=== PATIENT | female | born 1970 | race Caucasian/White ===

== ENCOUNTER 2024-03-27 19:34 | Emergency (ER) | payer OTHER ==
[~2024-03-27] VITALS: Ht 172.7 cm; Wt 59.0 kg
[~2024-03-27 19:34] MED LIST: ONDA4ODT MM
[2024-03-27 19:58] LABS: BASOPHILS ABSOLUTE AUTO 0.04 K/mm3 (0.00-0.23); BASOPHILS PERCENT AUTO 0 % (0-2); EOSINOPHILS ABSOLUTE AUTO 0.33 K/mm3 (0.00-0.68); EOSINOPHILS PERCENT AUTO 4 % (0-6); Hematocrit 38.1 % (33.0-51.0); Hemoglobin 13.1 g/dL (11.5-16.0); IMMATURE GRAN ABSOLUTE AUTO 0.02 K/mm3 (0.00-0.10); IMMATURE GRAN PERCENT AUTO 0 % (0-1); LYMPHOCYTES ABSOLUTE AUTO 2.49 K/mm3 (0.84-5.20); LYMPHOCYTES PERCENT AUTO 27 % (21-46); MONOCYTES ABSOLUTE AUTO 0.66 K/mm3 (0.16-1.47); MONOCYTES PERCENT AUTO 7 % (4-13); Mean Corpuscular HGB Conc 34.4 g/dL (31.5-36.5); Mean Corpuscular Volume 90 fL (80-100); NEUTROPHILS ABSOLUTE AUTO 5.87 K/mm3 (1.96-9.15); NEUTROPHILS PERCENT AUTO 62 % (41-73); Platelet Count 239 K/mm3 (150-400); RDW Coefficient Variation 12.8 % (11.7-14.2); RDW Standard Deviation 41.8 fL (35.1-46.3); Red Blood Cell Count 4.22 M/mm3 (3.80-5.20); White Blood Cell Count 9.41 K/mm3 (4.00-11.30)
[2024-03-27 20:24] LABS: Albumin, Blood 3.8 g/dL (3.4-5.0); Albumin/Globulin Ratio 1.2 (0.8-1.8); Bilirubin, Total 0.4 mg/dL (0.1-1.0); Bun/Creatinine Ratio 40.7 (12.0-20.0); Calcium, Blood 8.7 mg/dL (8.5-10.1); Creatinine, Blood 0.62 mg/dL (0.40-1.00); Globulin, Blood 3.3 g/dL (2.2-4.0); Potassium, Blood 3.3 mmol/L (3.5-5.5); Total Protein, Blood 7.1 g/dL (6.4-8.2)
[2024-03-27 20:33] LABS: Influenza A, PCR NEGATIVE (NEGATIVE); Influenza B, PCR NEGATIVE (NEGATIVE); Resp Syncytial Virus, PCR NEGATIVE (NEGATIVE); SARS-Cov-2 (COVID-19) PCR, MMC NEGATIVE (NEGATIVE)
[2024-03-27] MEDS ORDERED: Ketorolac Tromethamine 30mg Vial IV ONE (20:50)
[2024-03-27] MEDS ORDERED: NS 1,000 ML IV SCH (20:50)
== END 2024-03-27 22:02 | disposition home or self-care (01) ==
LOC: ER 19:34
PROVIDERS: Student in an Organized Health Care Education/Training Program
DX: R51.9 Headache, unspecified (principal); Z88.0 Allergy status to penicillin; Z88.6 Allergy status to analgesic agent
CPT/HCPCS: 0241U; 80053; 85025; 96361; 96374; 99284-25; J1885; J7030

== ENCOUNTER 2024-04-30 21:32 | Emergency (ER) | payer OTHER ==
[~2024-04-30] VITALS: Ht 175.3 cm; Wt 59.0 kg
[~2024-04-30 21:32] MED LIST changes: +DOXY100 PO; +LACT PO; +METR500 PO; +NICO2 PO; +PARO20 PO; +PRAZ1 PO; +QUET100 PO; +Seroquel Xr50 MG
[2024-04-30] MEDS ORDERED: Morphine Sulfate 4 MG/1 ML Injection IV ONE (23:35)
[2024-04-30] MEDS ORDERED: Ondansetron HCl 2 MG / ML 2ML Vial IV ONE (23:35)
[2024-04-30 23:40] LABS: BASOPHILS ABSOLUTE AUTO 0.03 K/mm3 (0.00-0.23); BASOPHILS PERCENT AUTO 1 % (0-2); EOSINOPHILS ABSOLUTE AUTO 0.07 K/mm3 (0.00-0.68); EOSINOPHILS PERCENT AUTO 1 % (0-6); Hematocrit 38.3 % (33.0-51.0); IMMATURE GRAN ABSOLUTE AUTO 0.02 K/mm3 (0.00-0.10); IMMATURE GRAN PERCENT AUTO 0 % (0-1); LYMPHOCYTES ABSOLUTE AUTO 1.45 K/mm3 (0.84-5.20); LYMPHOCYTES PERCENT AUTO 22 % (21-46); MONOCYTES ABSOLUTE AUTO 0.39 K/mm3 (0.16-1.47); MONOCYTES PERCENT AUTO 6 % (4-13); Mean Corpuscular HGB Conc 33.9 g/dL (31.5-36.5); Mean Corpuscular Volume 91 fL (80-100); NEUTROPHILS ABSOLUTE AUTO 4.58 K/mm3 (1.96-9.15); NEUTROPHILS PERCENT AUTO 70 % (41-73); Platelet Count 235 K/mm3 (150-400); RDW Coefficient Variation 12.7 % (11.7-14.2); RDW Standard Deviation 42.3 fL (35.1-46.3); White Blood Cell Count 6.54 K/mm3 (4.00-11.30)
[2024-04-30 23:55] LABS: Albumin, Blood 3.8 g/dL (3.4-5.0); Albumin/Globulin Ratio 1.2 (0.8-1.8); Bilirubin, Total 0.4 mg/dL (0.1-1.0); Bun/Creatinine Ratio 16.6 (12.0-20.0); Calcium, Blood 8.7 mg/dL (8.5-10.1); Creatinine, Blood 0.54 mg/dL (0.40-1.00); Globulin, Blood 3.2 g/dL (2.2-4.0); Potassium, Blood 3.8 mmol/L (3.5-5.5)
[2024-05-01] MEDS ORDERED: HYDROmorphone HCl/Pf 1MG SYR IV PRN (00:40)
[2024-05-01] MEDS ORDERED: RX Prepack 6 Tabs Oxycodone 5mg UD ONE (01:40)
[2024-05-01] MEDS ORDERED: Diphth,Pertuss(Acell),Tet Vac 0.5 ML VIAL IM ONE (01:45)
== END 2024-05-01 03:00 | disposition home or self-care (01) ==
LOC: ER 21:32
PROVIDERS: Emergency Medicine
DX: S82.852A Displaced trimalleolar fracture of left lower leg, initial encounter for closed fracture (principal); W01.10XA Fall on same level from slipping, tripping and stumbling with subsequent striking against unspecified object, initial encounter; Z88.6 Allergy status to analgesic agent; Z88.8 Allergy status to other drugs, medicaments and biological substances; Z91.018 Allergy to other foods; Z79.899 Other long term (current) drug therapy; F17.200 Nicotine dependence, unspecified, uncomplicated
CPT/HCPCS: 27818; 73610; 80053; 85025; 90471; 90715; 96374-59; 96375-59; 99284-25; A9270; J1170; J2270; J2405

== ENCOUNTER 2024-05-01 09:18 | Inpatient (IN) | payer OTHER ==
[~2024-05-01] VITALS: Ht 167.6 cm; Wt 60.1 kg
[2024-05-01] MEDS ORDERED: Ondansetron 4 MG SoluTab MM ONE (09:30)
[2024-05-01] MEDS ORDERED: HYDROmorphone HCl/Pf 1MG SYR IM ONE ×2 (09:30→11:25)
[2024-05-01] MEDS ORDERED: Ketamine HCl 100 MG / ML 5ML Vial IV ONE (14:10)
[2024-05-01] MEDS ORDERED: HYDROmorphone HCl/Pf 1MG SYR IV ONE (17:00)
[2024-05-01] MEDS ORDERED: Acetaminophen 325 MG TABLET PO PRN (17:40)
[2024-05-01] MEDS ORDERED: Metoclopramide HCl 5MG / ML 2ML Vial IV PRN (17:45)
[2024-05-01] MEDS ORDERED: OxyCODONE HCL 5 MG TAB PO PRN (17:45)
[2024-05-01] MEDS ORDERED: NS 1,000 ML IV SCH (17:45)
[2024-05-01] MEDS ORDERED: FentaNYL Citrate 50 MCG/ML 2 ML Injection IV PRN (17:45)
[2024-05-01] MEDS ORDERED: Ondansetron HCl 2 MG / ML 2ML Vial IV PRN (17:45)
--- NOTE | 2024-05-01 19:45 | NUR ---
NEW ADMIT. PATIENT ADMITTED TO ROOM 302 FROM THE ER. PATIENT ARRIVED TO ROOM VIA GURNEY AND 1 PERSON TRANSFER. PATIENT ARRIVED TO ROOM WITH ONE PERSONAL BELONGINGS BAG AND A SLEEPING BAG. PATIENT ABLE TO SELF TRANSFER WITH STAND PIVOT FROM GURNEY TO BED. THIS RN TO ASSUME CARE OF PATIENT.
[2024-05-01 19:52] VITALS: BP 130/79
[2024-05-02 03:35] VITALS: BP 119/71
--- NOTE | 2024-05-02 04:51 | NUR ---
SHIFT SUMMARY. PATIENT IS A&OX4. PATIENT IS ABLE TO MAKE HER NEEDS KNOWN AND CALLS APPROPRIATELY. PATIENT ADMITED WITH RIGHT ANKLE FX. PATIENT IS ABLE TO STAND PIVOT TO BSC WITH SBA/1 PERSON ASSIST. PATIENT C/O PAIN X2-MEDICATED PER EMAR WITH REPORTED PAIN IMPROVEMENT. PATIENT RESTED OFF AND ON T/O NIGHT WITH RESPIRATIONS EQUAL AND UNLABORED. PATIENT WOULD LIKE TO TAKE A SHOWER TODAY-WILL RELAY TO DAYSHIFT RN. CONSULT WITH ORTHO CALLED IN 05/01/24 BY THIS RN FOR CONSULT ON 05/02/24 IN THE AM. BED IS LOCKED IN THE LOWEST POSITION WITH CALL LIGHT IN REACH. CARE IS ONGOING.
[2024-05-02 05:15] LABS: Hematocrit 34.2 % (33.0-51.0); Hemoglobin 11.4 g/dL (11.5-16.0); Mean Corpuscular HGB 30.6 pg (26.0-34.0); Mean Corpuscular HGB Conc 33.3 g/dL (31.5-36.5); Mean Corpuscular Volume 92 fL (80-100); Mean Platelet Volume 9.8 fL (9.1-12.4); Platelet Count 199 K/mm3 (150-400); RDW Coefficient Variation 12.6 % (11.7-14.2); RDW Standard Deviation 42.4 fL (35.1-46.3); Red Blood Cell Count 3.72 M/mm3 (3.80-5.20); White Blood Cell Count 7.04 K/mm3 (4.00-11.30)
[2024-05-02 05:27] LABS: International Normalized Ratio 1.02; Prothrombin Time Results 10.9 Sec (9.7-11.5)
[2024-05-02 05:47] LABS: Calcium, Blood 8.3 mg/dL (8.5-10.1); Creatinine, Blood 0.47 mg/dL (0.40-1.00); Potassium, Blood 3.7 mmol/L (3.5-5.5)
[2024-05-02 07:17] VITALS: BP 137/76
[2024-05-02] MEDS ORDERED: Enoxaparin 40 MG/0.4 ML SYR SC SCH (09:00)
--- NOTE | 2024-05-02 10:38 | NUR ---
Atempted to set up shower room and wrap leg for patient to shower after request, Georgina came in to chat. after he left just shouting agitated by herself. Entered back i room to finish wrapping leg. Furious stating I stole her phone storage battery charger and wheelchair. I showed her that I only have a trash bag and tape in my hands. Shouting and agitated, both nearby r.n.'s outside door listening. Hopping from subject to subject angry, suspicious, unsatisfiable, agitated. . I just said, Ill come back. Let her continue to shout by herslf, r.n's standby. (I think shes withdrawing) Ill come back to help if shes calmed.
[2024-05-02 15:31] VITALS: BP 133/72
--- NOTE | 2024-05-02 16:45 | NUR ---
PATIENT A&OX4. PATIENT CAN MAKE NEEDS KNOWN. PATIENT STATES PAIN 10/10 TO LEFT ANKLE TREATED PER EMAR. PATIENT STATES SHE HAS PAIN TO HER RIGHT SHOULDER AND LEFT WRIST. ADDITIONAL X-RAYS ORDERED BY DR. IRWIN OF THE LEFT WRIST AND RIGHT SHOULDER. PATIENT TRANSFERS TO BSC INDEPENDENTLY. PATIENT USES CALL LIGHT WHEN IN NEED OF ASSISTANCE WITH TRANSFERS.
--- NOTE | 2024-05-02 16:45 | NUR ---
THIS TELECOMMUNICATION TOWER TECHNICIAN HAS REVIEWED AND AGREES WITH ALL NOTES AND ASSESSMENTS BY AYAAN JARAMILLO.
[2024-05-02 19:34] VITALS: BP 135/75
[2024-05-02] MEDS ORDERED: Docusate Sodium 100 MG Cap PO SCH (21:00)
[2024-05-03 02:57] VITALS: BP 123/75
--- NOTE | 2024-05-03 05:29 | NUR ---
SHIFT SUMMARY 53 YR F ADMITTED ON 05/02/24. FULL CODE. NO ACUTE CHANGES THIS SHIFT. PT STATING LEFT ANKLE PAIN AT 8-9 AND MEDICATED SEVERAL TIMES THIS SHIFT PER EMAR. SHE HAS HAD NO C/O WRIST OR SHOULDER PAIN THIS SHIFT. SHE SLEPT THROUGH MOST OF THE NIGHT AND HAD 1 EPISODE OF INCONTINENCE OF URINE THAT REQUIRED A FULL BED CHANGE. A UA STILL NEEDS TO BE COLLECTED BUT EVERY TIME SHE USES THE URINAL SHE THROWS TOILET TISSUE IN IT DESPITE BEING ASKED NOT TO.
[2024-05-03 06:57] LABS: Source, Urine Clean Catch
[2024-05-03 07:00] LABS: Appearance, Urine Clear (Clear); Bilirubin, Urine Neg (Neg); Blood, Urine 1+ (Neg); Glucose Qualitative, Urine Neg (Neg); Ketones, Urine Neg (Neg); Leukocyte Esterase, Urine 3+ (Neg); Nitrite, Urine Neg (Neg); Protein, Urine Neg (Neg); Urobilinogen, Urine NORM (Normal)
[2024-05-03 07:05] LABS: Color, Urine Pale Yellow (P-Yellow)
[2024-05-03 07:06] LABS: Bacteria Few /hpf; Squamous Epithelial Cells Few /hpf (Few)
[2024-05-03 07:35] VITALS: BP 129/85
[2024-05-03] MEDS ORDERED: HYDROcodone 10-APAP 325 TAB PO PRN (09:50)
[2024-05-03 15:45] VITALS: BP 109/74
--- NOTE | 2024-05-03 18:17 | NUR ---
SUMMARY- AAOX4. SBA-X1 ASSIST TO BSC IN ROOM WITH WALKER. NO ACUTE EVENTS. LEFT ANKLE AND BILATERAL WRIST PAIN WELL CONTROLLED THIS SHIFT WITH EMAR PAIN MEDS. GOOD APPETITE. PT ON RA.
[2024-05-03 19:24] VITALS: BP 115/55
[2024-05-04 02:11] VITALS: BP 108/74
--- NOTE | 2024-05-04 03:56 | NUR ---
SHIFT SUMMARY 53 YR F ADMITTED ON 05/02/24. FULL CODE. NO ACUTE CHANGES THIS SHIFT. PT IS ASKING FOR PAIN MEDS FREQUENTLY THIS SHIFT STATING PAIN IS AT A 9-10. SHE HAS BEEN IN TEARS SEVERAL TIMES. SHE HAS BEEN PLEASANT AND COOPERATIVE WITH CARE. SHE APOLOQIZES ALOT FOR "BOTHERING" THE STAFF. SHE HAD A LARGE INCONTINENT EPISODE OF URINE THAT REQUIRED A FULL BED CHANGE BUT HAS ALSO BEEN CONTINENT. WILL CONTINUE TO MONITOR.
[2024-05-04 07:22] VITALS: BP 125/70
[2024-05-04 11:21] LABS: SARS-Cov-2 (COVID-19) PCR, MMC NEGATIVE (NEGATIVE)
[2024-05-04 12:34] LABS: Source, Urine Straight Cath
[2024-05-04 12:49] LABS: Appearance, Urine Clear (Clear); Bilirubin, Urine Neg (Neg); Blood, Urine Neg (Neg); Color, Urine Yellow (P-Yellow); Glucose Qualitative, Urine Neg (Neg); Ketones, Urine Neg (Neg); Leukocyte Esterase, Urine 1+ (Neg); Nitrite, Urine Neg (Neg); Protein, Urine Neg (Neg); Urobilinogen, Urine NORM (Normal)
[2024-05-04 12:55] LABS: Bacteria Rare /hpf; Red Blood Cells, Urine Not Seen /hpf (0-2); Squamous Epithelial Cells Rare /hpf (Few)
[2024-05-04] MEDS ORDERED: Cephalexin Monohydrate 500 MG Cap PO SCH (13:00)
[2024-05-04 15:47] VITALS: BP 102/60
--- NOTE | 2024-05-04 17:50 | NUR ---
SUMMARY- PT AAOX3-4 THIS SHIFT. BEDREST. PT MEDICATED X1 FOR GENERAL PAIN. PT CALM AND COOPERATIVE WITH CARE THIS SHIFT. CONTINENT USING THE URINAL. NO ACUTE EVENTS THIS SHIFT. PT TURNED Q 2 HOURS.
--- NOTE | 2024-05-04 18:15 | NUR ---
SUMMARY- AAOX4. SBA TO BSC. PAIN WELL CONTROLLED WITH EMAR PAIN MEDS. ON RA. EXCELLENT APPETITE. NO ACUTE EVENTS THIS SHIFT. PT COOPERATIVE WITH CARE.
[2024-05-04 19:57] VITALS: BP 129/50
[2024-05-04] MEDS ORDERED: Sennosides 8.6 MG Tab PO SCH (21:00)
[2024-05-05 02:01] VITALS: BP 107/69
--- NOTE | 2024-05-05 03:12 | NUR ---
SHIFT SUMMARY 53 YR F ADMITTED ON 05/02/24. FULL CODE. NO ACUTE CHANGES THIS SHIFT. PT HAS BEEN PLEASANT AND COOPERATIVE WITH CARE. SHE APPEARS TO HAVE RESTED COMFORTABLY FOR MOST OF THIS SHIFT. STILL C/O PAIN AT 9/10. PLEASANT AND COOPERATIVE WITH CARE. WILL CONTINUE TO MONITOR.
[2024-05-05 07:19] VITALS: BP 98/78
[2024-05-05] MEDS ORDERED: CEPH500 PO (10:40)
[2024-05-05] MEDS ORDERED: HYDROCODONE-AC1 EA19 PO (12:21)
--- NOTE | 2024-05-05 15:26 | NUR ---
1515- PT BROUGHT DOWN FOR DC IN STABLE CONDITION IN HER OWN PERSONAL WC BY EMS TRANSPORT. PT GIVEN HARD SCRIPT FOR PAIN MEDS-COPY IN CHART. PT SIGNED ALL DC PAPERWORK. PT GAVE VERBAL UNDERSTANDING TO DC INSTRUCTIONS AND MEDS TO BE PICKED UP AT [facility]. PT LEFT WITH ALL BELONGINGS.
== END 2024-05-05 15:14 | disposition home or self-care (01) | DRG 563 ==
LOC: ER 09:18 → MEDS 09:19
PROVIDERS: Internal Medicine; Nurse Practitioner Acute Care; ADMIT Internal Medicine
PROC: 2W3RX1Z Immobilization of Left Lower Leg using Splint (ICD-10-PCS; principal; 2024-05-01)
DX: S82.852A Displaced trimalleolar fracture of left lower leg, initial encounter for closed fracture (principal); Z59.00 Homelessness unspecified; N39.0 Urinary tract infection, site not specified; S62.002K Unspecified fracture of navicular [scaphoid] bone of left wrist, subsequent encounter for fracture with nonunion; F41.9 Anxiety disorder, unspecified; F32.A Depression, unspecified; M25.532 Pain in left wrist; F17.210 Nicotine dependence, cigarettes, uncomplicated; J44.9 Chronic obstructive pulmonary disease, unspecified; Z88.8 Allergy status to other drugs, medicaments and biological substances; Z88.0 Allergy status to penicillin; Z91.018 Allergy to other foods; Z79.899 Other long term (current) drug therapy; Z79.2 Long term (current) use of antibiotics; W01.0XXA Fall on same level from slipping, tripping and stumbling without subsequent striking against object, initial encounter
CPT/HCPCS: 27818; 36415; 73030; 73110; 73600; 80048; 81001; 83735; 85027; 85610; 87077; 87086; 87186; 96372; 96372-59; 96374-59; 96375; 96375-59; 96376; 97110; 97161; 97530; 99152; 99284-25; A9270; G0378; J1170; J1650; J3010; J7030; U0002

== ENCOUNTER 2024-07-19 20:43 | Observation (INO) | payer OTHER ==
[~2024-07-19] VITALS: Ht 172.7 cm; Wt 59.0 kg
[~2024-07-19 20:43] MED LIST changes: +CEPH500 PO; +HYDROCODONE-AC1 EA19 PO
[2024-07-19] MEDS ORDERED: OXYC5 PO (21:23)
[2024-07-19 22:02] LABS: BASOPHILS ABSOLUTE AUTO 0.05 K/mm3 (0.00-0.23); BASOPHILS PERCENT AUTO 1 % (0-2); EOSINOPHILS ABSOLUTE AUTO 0.13 K/mm3 (0.00-0.68); EOSINOPHILS PERCENT AUTO 1 % (0-6); Hematocrit 39.9 % (33.0-51.0); Hemoglobin 13.3 g/dL (11.5-16.0); IMMATURE GRAN ABSOLUTE AUTO 0.03 K/mm3 (0.00-0.10); IMMATURE GRAN PERCENT AUTO 0 % (0-1); LYMPHOCYTES ABSOLUTE AUTO 2.53 K/mm3 (0.84-5.20); LYMPHOCYTES PERCENT AUTO 25 % (21-46); MONOCYTES ABSOLUTE AUTO 0.58 K/mm3 (0.16-1.47); MONOCYTES PERCENT AUTO 6 % (4-13); Mean Corpuscular HGB 29.2 pg (26.0-34.0); Mean Corpuscular HGB Conc 33.3 g/dL (31.5-36.5); Mean Corpuscular Volume 88 fL (80-100); Mean Platelet Volume 9.6 fL (9.1-12.4); NEUTROPHILS ABSOLUTE AUTO 6.73 K/mm3 (1.96-9.15); NEUTROPHILS PERCENT AUTO 67 % (41-73); Platelet Count 274 K/mm3 (150-400); RDW Coefficient Variation 13.2 % (11.7-14.2); RDW Standard Deviation 42.5 fL (35.1-46.3); Red Blood Cell Count 4.56 M/mm3 (3.80-5.20); White Blood Cell Count 10.05 K/mm3 (4.00-11.30)
[2024-07-19 22:26] LABS: Ethanol (Alcohol), Blood, Med <3 mg/dL; Salicylate 3.5 mg/dL (2.8-20.0)
[2024-07-19 22:29] LABS: Alanine Aminotransfer (ALT/SGP 18 U/L (12-78); Albumin, Blood 3.6 g/dL (3.4-5.0); Alk Phos 105 U/L (50-136); Anion Gap 8 mmol/L (3-11); Aspartate Aminotrans (AST/SGOT 14 U/L (12-37); Bilirubin, Total 0.3 mg/dL (0.1-1.0); Blood Urea Nitrogen 13 mg/dL (8-24); Bun/Creatinine Ratio 26.6 (12.0-20.0); CO2, Blood 30 mmol/L (21-32); Calcium, Blood 9.9 mg/dL (8.5-10.1); Chloride, Blood 107 mmol/L (98-108); Creatinine, Blood 0.49 mg/dL (0.40-1.00); Globulin, Blood 3.6 g/dL (2.2-4.0); Glomerular Filtration Rate 111 (60-); Glucose, Blood 109 mg/dL (70-99); Potassium, Blood 3.8 mmol/L (3.5-5.5); Sodium, Blood 141 mmol/L (136-145); Total Protein, Blood 7.2 g/dL (6.4-8.2)
[2024-07-19 22:31] LABS: Acetaminophen, Random <2.0 ug/mL (10.0-30.0)
[2024-07-20 04:54] LABS: Source, Urine Clean Catch
[2024-07-20 05:01] LABS: Bilirubin, Urine Neg (Neg); Blood, Urine Neg (Neg); Glucose Qualitative, Urine Neg (Neg); Ketones, Urine Neg (Neg); Leukocyte Esterase, Urine 3+ (Neg); Nitrite, Urine Neg (Neg); Protein, Urine Neg (Neg); Urobilinogen, Urine NORM (Normal); pH, Urine 6.5 (5.0-8.0)
[2024-07-20 05:19] LABS: Appearance, Urine Hazy (Clear); Color, Urine Pale Yellow (P-Yellow)
[2024-07-20 05:20] LABS: Red Blood Cells, Urine 0-2 /hpf (0-2); Squamous Epithelial Cells Few /hpf (Few)
[2024-07-20 05:21] LABS: Amorphous Mod (0-Heavy); Bacteria Few /hpf
[2024-07-20 05:22] LABS: U Amphetamine Screen Not Detected; U Barbituate Screen Not Detected; U Benzodiazapine Screen Not Detected; U Buprenorphine Screen Not Detected; U Cannabinoids Screen DETECTED; U Cocaine Screen Not Detected; U Methadone Screen Not Detected; U Methamphetamine Screen Not Detected; U Opiates Screen Not Detected; U Oxycodone Screen Not Detected; U Phencyclidine Screen Not Detected
[2024-07-20 05:27] LABS: Influenza A, PCR NEGATIVE (NEGATIVE); Influenza B, PCR NEGATIVE (NEGATIVE); Resp Syncytial Virus, PCR NEGATIVE (NEGATIVE); SARS-Cov-2 (COVID-19) PCR, MMC NEGATIVE (NEGATIVE)
[2024-07-20] MEDS ORDERED: Acetaminophen 500 MG Tab PO ONE (11:05)
[2024-07-20] MEDS ORDERED: Ketorolac Tromethamine 30mg Vial IM ONE (11:05)
[2024-07-20] MEDS ORDERED: TRAM50 PO (12:20)
[2024-07-20] MEDS ORDERED: OXYCODONE-ACET1 EAC3 PO (12:20)
[2024-07-20] MEDS ORDERED: Droperidol 5 mg/2 ml Vial IM ONE (14:15)
[2024-07-20] MEDS ORDERED: Trimethoprim/Sulfamethoxazole DS Tab PO SCH (21:00)
== END 2024-07-21 06:37 | disposition home or self-care (01) ==
LOC: ER 20:43 → ERHOLD 20:44
PROVIDERS: Student in an Organized Health Care Education/Training Program; ADMIT Student in an Organized Health Care Education/Training Program
DX: R45.851 Suicidal ideations (principal); F17.200 Nicotine dependence, unspecified, uncomplicated; Z88.6 Allergy status to analgesic agent; Z88.0 Allergy status to penicillin; Z88.8 Allergy status to other drugs, medicaments and biological substances; Z91.018 Allergy to other foods
CPT/HCPCS: 0241U; 80053; 80320; 81001; 85025; 87086; 93005; 93010; 96372; 99285-25; A9270; G0378; G0480; J1790; J1885

== ENCOUNTER → 2024-09-01 | Outpatient (CLI) | payer OTHER ==
[~2024-09-01] MED LIST changes: +ALBU8HFA2 INH; +BACTRIM DS TAB1 EAC1 PO; +BENZ100A PO; +LEVO750 PO; +OXYC5 PO; +OXYCODONE-ACET1 EAC3 PO; +TRAM50 PO
== END | disposition home or self-care (01) ==
LOC: LAB 13:06 → LAB SHORT 13:06
DX: L03.211 Cellulitis of face (principal)
CPT/HCPCS: 87070; 87077; 87147; 87186; 87205

== ENCOUNTER 2024-11-18 16:08 | Emergency (ER) | payer OTHER ==
[~2024-11-18] VITALS: Ht 172.7 cm; Wt 59.0 kg
[2024-11-18] MEDS ORDERED: NS 1,000 ML IV SCH (16:55)
[2024-11-18 17:04] LABS: BASOPHILS ABSOLUTE AUTO 0.04 K/mm3 (0.00-0.23); BASOPHILS PERCENT AUTO 1 % (0-2); EOSINOPHILS ABSOLUTE AUTO 0.15 K/mm3 (0.00-0.68); EOSINOPHILS PERCENT AUTO 2 % (0-6); Hematocrit 37.7 % (33.0-51.0); Hemoglobin 12.7 g/dL (11.5-16.0); IMMATURE GRAN ABSOLUTE AUTO 0.02 K/mm3 (0.00-0.10); IMMATURE GRAN PERCENT AUTO 0 % (0-1); LYMPHOCYTES ABSOLUTE AUTO 1.21 K/mm3 (0.84-5.20); LYMPHOCYTES PERCENT AUTO 14 % (21-46); MONOCYTES ABSOLUTE AUTO 0.39 K/mm3 (0.16-1.47); MONOCYTES PERCENT AUTO 5 % (4-13); Mean Corpuscular HGB 29.2 pg (26.0-34.0); Mean Corpuscular HGB Conc 33.7 g/dL (31.5-36.5); Mean Corpuscular Volume 87 fL (80-100); Mean Platelet Volume 9.3 fL (9.1-12.4); NEUTROPHILS ABSOLUTE AUTO 6.71 K/mm3 (1.96-9.15); NEUTROPHILS PERCENT AUTO 79 % (41-73); Platelet Count 227 K/mm3 (150-400); RDW Coefficient Variation 14.2 % (11.7-14.2); RDW Standard Deviation 45.7 fL (35.1-46.3); Red Blood Cell Count 4.35 M/mm3 (3.80-5.20); White Blood Cell Count 8.52 K/mm3 (4.00-11.30)
[2024-11-18 17:14] LABS: Albumin, Blood 3.3 g/dL (3.4-5.0); Albumin/Globulin Ratio 0.9 (0.8-1.8); Bilirubin, Total 0.2 mg/dL (0.1-1.0); Bun/Creatinine Ratio 30.8 (12.0-20.0); Calcium, Blood 8.8 mg/dL (8.5-10.1); Creatinine, Blood 0.42 mg/dL (0.40-1.00); Globulin, Blood 3.5 g/dL (2.2-4.0); Potassium, Blood 3.9 mmol/L (3.5-5.5); Total Protein, Blood 6.8 g/dL (6.4-8.2)
[2024-11-18 18:07] LABS: Source, Urine Clean Catch
[2024-11-18 18:12] LABS: Appearance, Urine Clear (Clear); Bilirubin, Urine Neg (Neg); Blood, Urine 2+ (Neg); Color, Urine Yellow (P-Yellow); Glucose Qualitative, Urine Neg (Neg); Ketones, Urine Neg (Neg); Leukocyte Esterase, Urine 1+ (Neg); Nitrite, Urine Neg (Neg); Protein, Urine Neg (Neg); Urobilinogen, Urine NORM (Normal); pH, Urine 6.5 (5.0-8.0)
[2024-11-18 18:39] LABS: Bacteria Few /hpf; Red Blood Cells, Urine 0-2 /hpf (0-2); Squamous Epithelial Cells Not Seen /hpf (Few); White Blood Cells, Urine 0-2 /hpf (0-5)
[2024-11-18] MEDS ORDERED: Milk 150ML/Molasses 150ML (300ML Total) PR ONE (20:10)
[2024-11-18] MEDS ORDERED: Morphine Sulfate 4 MG/1 ML Injection IV ONE (20:45)
[2024-11-18] MEDS ORDERED: Lidocaine 2% Jelly Uro-Jet TOP ONE (20:45)
[2024-11-18] MEDS ORDERED: Morphine Sulfate 4 MG/1 ML Injection ONE (21:08)
[2024-11-18] MEDS ORDERED: MetroNIDAZOLE 500 MG Tab PO ONE (21:25)
[2024-11-18] MEDS ORDERED: Midazolam HCl 1MG / ML 2ML Vial IV ONE (21:30)
[2024-11-18] MEDS ORDERED: FentaNYL Citrate 50 MCG/ML 2 ML Injection IV ONE ×2 (21:30→23:05)
[2024-11-18] MEDS ORDERED: Lidocaine 2% Jelly Uro-Jet UR ONE (22:55)
[2024-11-18] MEDS ORDERED: MIRALAX17 GM PO (23:21)
[2024-11-18] MEDS ORDERED: DULCOLAX400 MG/5 M PO (23:21)
[2024-11-18] MEDS ORDERED: METR500 PO (23:22)
== END 2024-11-18 23:51 | disposition home or self-care (01) ==
LOC: ER 16:08
PROVIDERS: Emergency Medicine
DX: K59.00 Constipation, unspecified (principal); K62.89 Other specified diseases of anus and rectum; F17.210 Nicotine dependence, cigarettes, uncomplicated; Z91.018 Allergy to other foods; Z88.6 Allergy status to analgesic agent; Z88.0 Allergy status to penicillin; Z79.891 Long term (current) use of opiate analgesic; Z79.811 Long term (current) use of aromatase inhibitors; Z79.51 Long term (current) use of inhaled steroids; Z79.2 Long term (current) use of antibiotics
CPT/HCPCS: 45915; 74177; 80053; 81001; 83690; 83735; 85025; 96361; 96374; 99152; 99284-25; A9270; J2250; J2270; J3010; J7030; Q9967